=== PATIENT | female | born 1955 | race Caucasian/White ===

== ENCOUNTER 2021-01-05 19:14 | Emergency (ER) | payer OTHER, BC ==
[2021-01-05] MEDS ORDERED: Propofol 200 MG/20 ML SDV IV ONE (19:15)
[2021-01-05] MEDS ORDERED: fentaNYL 100 MCG/2 ML SDV IVPUSH ONE (19:51)
[2021-01-05] MEDS ORDERED: Sodium Chloride 0.9% 500 ML IV SCH (20:00)
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
--- NOTE | 2021-01-05 20:04 | CR ---
PROCEDURE INFORMATION: Exam: XR Left Elbow Exam date and time: 01/05/2021 7:29 PM Age: 65 years old Clinical indication: Other: Arm got pulled/pain; Additional info: Left elbow pain TECHNIQUE: Imaging protocol: XR Left elbow. Views: 3 or more views. COMPARISON: No relevant prior studies available. FINDINGS: Bones/joints: There is posterior displacement of the ulna and radius with respect of the humerus. There is a small fracture fragment from the coronoid process. Soft tissues: There is moderate soft tissue swelling. IMPRESSION: Posterior dislocation of the radius and ulna at the humerus.
--- NOTE | 2021-01-05 20:54 | CR ---
PROCEDURE INFORMATION: Exam: XR Left Elbow Exam date and time: 01/05/2021 8:44 PM Age: 65 years old Clinical indication: Other: Lat view only; Additional info: Elbow reduction TECHNIQUE: Imaging protocol: XR Left elbow. Views: 1 or 2 views. COMPARISON: CR Elbow 2V Rt 01/05/2021 7:29 PM FINDINGS: Bones/joints: There is no evidence of malalignment or dislocation. Soft tissues: No soft tissue swelling is identified. IMPRESSION: Anatomic alignment of the left elbow as seen in the lateral projection.
== END 2021-01-05 21:34 | disposition home or self-care (01) ==
LOC: DL.ED 19:14
DX: S53.125A Posterior dislocation of left ulnohumeral joint, initial encounter (principal); S52.042A Displaced fracture of coronoid process of left ulna, initial encounter for closed fracture; V92.09XA Drowning and submersion due to fall off unspecified watercraft, initial encounter
CPT/HCPCS: 24600; 24675; 73070-LT; 73080-LT; 96374; 99283-25; 99284; J2704; J3010; J7040

== ENCOUNTER 2022-09-07 10:50 | Emergency (ER) | payer BC, MEDICARE ==
[2022-09-07] MEDS ORDERED: Acetaminophen/HYDROcodone 325-5 MG Tab PO ONE (10:51)
[2022-09-07] MEDS ORDERED: Lidocaine 5% Oint 35.44 GM Tube TOP ONE (11:01)
[2022-09-07] MEDS ORDERED: Bacitracin Oint 1 GM U/D Packet TOP ONE (11:02)
[2022-09-07] MEDS ORDERED: Acetaminophen/HYDROcodone 325-10 MG Tab PO ONE (11:03)
[2022-09-07] MEDS ORDERED: Acetaminophen/HYDROcodone 325-5 MG Tab ONE (11:21)
[2022-09-07] MEDS ORDERED: Ketorolac 30 MG/ML SDV IM ONE (11:33)
== END 2022-09-07 12:11 | disposition home or self-care (01) ==
LOC: DL.ED 10:50
DX: T23.252A Burn of second degree of left palm, initial encounter (principal); T23.232A Burn of second degree of multiple left fingers (nail), not including thumb, initial encounter; X16.XXXA Contact with hot heating appliances, radiators and pipes, initial encounter
CPT/HCPCS: 96372; 99283; A9270; J1885